=== PATIENT | male | born 1935 | race Caucasian/White ===

== ENCOUNTER 2017-04-28 12:29 | Inpatient (IN) | payer OTHER ==
[~2017-04-28] VITALS: Ht 180.3 cm; Wt 116.6 kg
[~2017-04-28 12:29] MED LIST: ACETAMINOPHEN-1 EAC3 PO; ACTOPLUS MET 11 EAC1 PO; AMBEREN PO; AMLODIPINE BESY10 MG PO; ASPIRIN EC81 M1 PO; BRILINTA90 MG PO; CALCIUM OYSTER500 MG PO; CENTRUM SILVER1 EAC4 PO; COMBIGAN EYE DR10 ML OPHTHALMIC; COZAAR 50 MG TA50 M1 PO; COZAAR 50 MG TA50 M2 PO; CRESTOR40 MG PO; GARLIC OIL1 EACH PO; GLUCOSAMINE &1 EACH PO; GLUCOTROL10 MG PO; HCTZ PO; HUMALOG100 UNIT/1 SQ; HYDROCHLOROTHIA25 M1 PO; IMDUR 30 MG TAB30 M1 PO; IMDUR 60 MG TAB60 M1 PO; JANUVIA100 MG PO; KLOR-CON 1010 MEQ PO; LANTUS SUBQ; LASIX 20 MG TAB20 MG PO; LATANOPROST 0.2.5 ML OPHTHALMIC; LEVAQUIN 750 M750 MG PO; LUMIGAN2.5 M1 OP; NITROGLYCERIN0.4 MG SUBLING; OMEGA-3 FISH O1 EAC3 PO; OMEPRAZOLE40 MG PO; OSTEO BI-FLEX1 EACH PO; PLAVIX 75 MG TA75 M1 PO; PLAVIX 75 MG TA75 MG PO; RANITIDINE 150150 M1 PO; TAMIFLU75 MG PO; TAMSULOSIN HCL0.4 MG PO; ZANTAC 150MG T150 M1 PO; ZETIA10 MG PO
[2017-04-28 12:46] VITALS: BP 149/54
[2017-04-28 13:57] LABS: ABSOLUTE LYMPHOCYTES 1.2 thou/uL (0.8-5.3); ABSOLUTE MONOCYTES 0.8 thou/uL (0.0-1.2); ABSOLUTE NEUTROPHILS 7.9 thou/uL (1.6-8.1); BASOPHILS 0.5 %; EOSINOPHILS 0.2 %; HEMATOCRIT 29.2 % (42.0-52.0); HEMOGLOBIN 9.8 gm/dL (14.0-18.0); LYMPHOCYTES 12.3 %; MCH 31.4 pg (26.0-34.0); MCHC 33.7 g/dL (28.0-37.0); MCV 93.3 fL (80.0-100.0); MONOCYTES 8.1 %; MPV 9.5 fl. (7.2-11.1); NUCLEATED RBCS 0 /100WBC; PLATELET COUNT* 147 thou/uL (150-400); POLYS 78.9 %; RBC 3.13 mil/uL (4.50-6.00); RDW-CV 15.3 % (10.5-14.5)
[2017-04-28 14:05] LABS: CALCIUM 8.7 mg/dL (8.5-10.1); CREATININE 1.3 mg/dL (0.6-1.3); POTASSIUM 4.1 mmol/L (3.5-5.1)
[2017-04-28 14:10] LABS: ALBUMIN 3.2 g/dL (3.4-5.0); TOTAL BILIRUBIN 0.5 mg/dL (<0.1-1.0); TOTAL PROTEIN 6.4 g/dL (6.4-8.2)
[2017-04-28 14:12] LABS: INFLUENZA A ANTIGEN None Detected (None Detect); INFLUENZA B ANTIGEN None Detected (None Detect)
[2017-04-28 16:50] VITALS: BP 138/58
[2017-04-28 17:15] VITALS: BP 115/64
--- NOTE | 2017-04-28 18:00 | NUR ---
RECEIVED REPORT FROM YOKASTA IN ER. PT ARRIVED TO TELE FLOOR AT 1715. ASSUMED CARE. PT A&O X4. VSS. O2 SAT 97% ON 4L PER NC. PT SHAKEY AND WEAK. CARDAIC MONITOR PLACED TRACING SB. ADMISSION HISTORY, ASSESSMENT, AND EDUCATION COMPLETED CHARTED. MEDS RECONCILLED. PT ORIENTED TO ROOM, BED, AND CALL LIGHT. PT DENIES PAIN OR DISCOMFORT, JUST STATES "I'M TIRED". PT NOT INTERESTED IN EATING DINNER. FALL PRECAUTIONS IN PLACE. CALL LIGHT IS WITHIN REACH. HOURLY ROUNDING.
[2017-04-28 20:00] VITALS: BP 126/59
[2017-04-28 23:41] VITALS: BP 99/49
[2017-04-29 03:49] VITALS: BP 117/84
--- NOTE | 2017-04-29 05:17 | NUR ---
PT A/OX4, SB ON THE MONITOR, 5L NC, UP WITH 1 WITH CANE, USING URINAL, UA COLLECTED AND SENT TO LAB, SPUTUM/STOOL SAMPLE STILL NEEDED, MEDS/ASSESSMENT PER CHARTING, HOURLY ROUNDING IN PLACE, FALL PRECAUTIONS IN PLACE, VSS, PT REPORTED NO PAIN, STATED SOA IS BETTER, WILL CONT TO MONITOR.
--- NOTE | 2017-04-29 08:00 | NUR ---
RECEIVED REPORT. ASSUMED CAER OF PT AT 0730. VSS. CARDIAC MOTNIORING IN PLACE SB. AM ASSESSMENT AND VITALS COMPLETED CHARTED. PT IS ALERT AND ORIENTED. PT ON 6L PER NC WITH O2 SAT AT 89-90%. PT DENIES ANY COMPLAINTS OF PAIN OR DISCOMFORT THIS AM. PT BECOMES SOA WITH ACTIVITY. IVF INFSUING. INFORMED DR. SINGH OF PT'S RESPIRATORY STATUS. ORDERS RECEIVED FOR IV LASIX, D/C IVF. PT INFORMED OF PLAN OF CARE. CALL LIGHT IS WITHIN REACH. WILL CONTINUE TO MOTNIOR FOR DURAIOTN OF SHIFT.
[2017-04-29 08:30] VITALS: BP 148/57
[2017-04-29 11:30] VITALS: BP 135/57
--- NOTE | 2017-04-29 12:14 | NUR ---
MET WITH PT TO DISCUSS HOME SITUATION/DC PLANNING. PT KNOWN TO CM FROM PREVIOUS HOSPITAL STAY IN FEB. PT LIVES IN [place]DEP[place]ENT APT AT [facility] WITH HIS . HE STATES SHE IS NOT IN 'GOOD' HEALTH. PT IS STILL ABLE TO DRIVE SHORT DISTANCES TO GO TO [facility] AND RUN ERRANDS. HE USES CANE OR WALKER NEEDED. PT HAS HAD HH WITH [facility] IN THE PAST BUT NOT CURRENTLY. WIEF IS DPOA. PT STATES HE IS WORKING ON GETTING GROCERIES DELIVERED AND ALREADY GETS THEIR MEDS DELIVERED. PT FOLLOWS WITH DR SCHMIDT BUT IS INTERESTED IN FINDING A DR CLOSER TO WHERE HE LIVES BUT NOT AT [facility]. WILL TRY TO GET LIST OFF HIS INSURANCE WEBSITE AND GIVE TO HIM
--- NOTE | 2017-04-29 13:45 | 2DMMODE ---
[place] [address] 2 D/M-MODE ECHOCARDIOGRAM Name: NASREEN VARELAL Room: [address] IN [facility]#: [id number] Admission: 04/28/17 Attend Phys: Pb Gamez, Discharge: Date of : 33 Date of Service: 04/29/17 1344 Report #: [id number] THIS REPORT FOR: //name// APPROVED REPORT Study performed: 04/29/2017 11:09:56 EXAM: Comprehensive 2D, Doppler, and color-flow Echocardiogram Patient Location: In-Patient Room #: 229 Status: routine BSA: 2.24 HR: 63 bpm BP: 148/57 mmHg Rhythm: NSR Other Information Study Quality: Good Indications Dyspnea CAD 2D Dimensions LVEF(%): 48.39 (>50%) IVSd: 14.49 (7-11mm) LVOT Diam: 19.15 (18-24mm) LVDd: 61.26 mm PWd: 10.60 (7-11mm) Ascending Ao: 32.20 (22-36mm) LVDs: 46.01 (25-40mm) Aortic Root: 33.57 mm Franklin's LVEF: 48.39 % Volumes Left Atrial Volume (Systole) LA ESV Index: 39.90 mL/m2 Aortic Valve AoV Peak Vasiliy.: 3.14 m/s AO Peak Gr.: 39.47 mmHg LVOT Max P.92 mmHg AO Mean Gr.: 23.32 mmHg LVOT Mean P.20 mmHg LVOT Max V: 1.49 m/s AO V2 VTI: 67.30 cm LVOT Mean V: 0.93 m/s GLORIA (VTI): 1.42 cm2 LVOT V1 VTI: 33.13 [place] [address] 2 D/M-MODE ECHOCARDIOGRAM Name: JULIO VARELA I Room: [address] IN ..#: [id number] Admission: 04/28/17 Attend Phys: Pb Gamez, Discharge: Date of : 33 Date of Service: 04/29/17 1344 Report #: [id number] E/A Ratio: 1.22 MV Decel. Time: 161.61 ms MV E Max Vasiliy.: 1.25 m/s MV PHT: 46.87 ms MVA (PHT): 4.69 cm2 TDI E/Lateral E': 9.62 E/Medial E': 11.36 Medial E' Vasiliy.: 0.11 m/s Lateral E' Vasiliy.: 0.13 m/s Pulmonary Valve PV Peak Vasiliy.: 1.37 m/s PV Peak Gr.: 7.50 mmHg Tricuspid Valve TR Peak Gr.: 25.11 mmHg RVSP: 30.00 mmHg Left Ventricle The left ventricle is normal size. There is normal LV segmental wall motion. There is normal left ventricular wall thickness. Left ventricular systolic function is normal. LVEF is 55-60%. The left ventricular diastolic function is normal. Right Ventricle Right ventricle is mildly dilated. The right ventricular systolic function is normal. Atria Left atrium is mildly dilated. Right atrium is mildly dilated. Aortic Valve Bioprosthetic aortic valve is present. No aortic regurgitation is present. Mild aortic stenosis. Mitral Valve There is mitral annular calcification. Trace mitral regurgitation. No evidence of mitral valve stenosis. Tricuspid Valve The tricuspid valve is normal in structure. Mild tricuspid regurgitation. The RVSP is 30-35 mmHg. Pulmonic Valve The pulmonary valve is normal in structure. [place] [address] 2 D/M-MODE ECHOCARDIOGRAM Name: JULIO VARELA I Room: [address]#: [id number] Admission: 04/28/17 Attend Phys: Pb Gamez, Discharge: Date of : 33 Date of Service: 04/29/17 1344 Report #: [id number] Great Vessels The aortic root is normal in size. IVC is normal in size and collapses with >50% inspiration Pericardium There is no pericardial effusion. <Conclusion> The left ventricle is normal size. There is normal left ventricular wall thickness. Left ventricular systolic function is normal. LVEF is 55-60%. The left ventricular diastolic function is normal. The left atrium size is normal. Right ventricle is mildly dilated. Left atrium is mildly dilated. Right atrium is mildly dilated. Bioprosthetic aortic valve is present. No aortic regurgitation is present. Mild aortic stenosis. There is mitral annular calcification. Trace mitral regurgitation. Mild tricuspid regurgitation. The RVSP is 30-35 mmHg. <ELECTRONICALLY SIGNED> By: Kvng Delvalle MD, FACC 04/29/17 1344 1344 1344 Kvng Delvalle MD, FACC /INF
--- NOTE | 2017-04-29 14:40 | EKG ---
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 : 1935 Requested By: Ivan Melara Order Number: [id number] MD: Kvng Delvalle Measurements Intervals Anderson Rate: 59 P: 59 NH: 179 QRS: -29 QRSD: 114 T: 151 QT: 449 QTc: 445 Interpretive Statements Sinus rhythm Inferior infarct age indeterminate Baseline wander in lead(s) V6 Compared to ECG 02/20/2017 11:43:34 Sinus bradycardia no longer present T-wave abnormality no longer present Electronically Signed On 04-29-2017 14:40:09 BILINGUAL OFFICE ASSISTANT by Kvng Delvalle [email or web address] <ELECTRONICALLY SIGNED> By: Kvng Delvalle MD, FACC 04/29/17 1440 1418 1418 Kvng Delvalle MD, [facility] /EPI
[2017-04-29 15:30] VITALS: BP 130/53
--- NOTE | 2017-04-29 17:15 | NUR ---
VSS. CARDIAC MONTIRING IN PLACE WITH NO CHANGES THIS SHIFT. PT REMIANS ON 5L PER NC WITH O2 SAT AT 90% PT DOES DE-SAT INTO MID-UPPER 80'S WITH ACTIVITY. PT SOMEWHAT PROGRESSING TOWARDS GOALS. PT NOW ON 2000 ML FR. PT EDUCATED. PT DIUREISED WELL THIS SHIFT. PT COMPLIANT WITH CRITICAL I&O. PT HAS HAD NO COMPLAINTS OF PAIN OR DISCOMFORT THIS SHFIT. NEW IV STARTED TO RIGHT HAND SALINE LOCKED. PT'S DAUGHTER INFORMED OF PLAN OF CARE. CALL LIGHT IS WITHIN REACH. PT IS UP WITH ASSISTANCE. BED ALARM ON FOR PT SAFETY. HOURLY ROUNDING. WILL CONTINUE TO MONTIOR FOR DURAITON OF SHIFT.
[2017-04-29 20:00] VITALS: BP 116/56
--- NOTE | 2017-04-29 22:00 | NUR ---
ASSESSMENT AND VITALS COMPLETED CHARTED, VSS. PATIENT DENIES PAIN AND DISCOMFORT. PATIENT ON 6L NC WITH SATS 93%. PATIENT IS SHORT OF AIR ON EXERTION. GOAL IS TO MAINTAIN SATS >92% AND HAVE IMPROVEMENT IN BREATHING. CALL LIGHT WITHIN REACH
[2017-04-30] VITALS: BP 107/69
[2017-04-30 04:23] VITALS: BP 139/48
[2017-04-30 04:57] LABS: CALCIUM 8.8 mg/dL (8.5-10.1); CREATININE 1.1 mg/dL (0.6-1.3); MAGNESIUM 1.5 mg/dL (1.8-2.4); POTASSIUM 3.7 mmol/L (3.5-5.1)
--- NOTE | 2017-04-30 05:23 | NUR ---
PATIENT PARTIALLY PROGRESSING TOWARDS GOALS: PATIENT MAINTAINED O2 SATS >92% ON 6L O2 NC. PATIENT REPORTS FEELING LESS SHORT OF AIR THIS AM. HOURLY ROUNDING OBSERVED. CALL LIGHT WITHIN REACH
[2017-04-30 08:00] VITALS: BP 153/87
[2017-04-30 08:21] LABS: URINE BILIRUBIN NEGATIVE (Negative); URINE BLOOD NEGATIVE (Negative); URINE CLARITY CLEAR; URINE COLOR YELLOW; URINE GLUCOSE-RANDOM NEGATIVE (Negative); URINE KETONES NEGATIVE (Negative); URINE LEUKOCYTES-REFLEX NEGATIVE (Negative); URINE NITRITE-REFLEX NEGATIVE (Negative); URINE PROTEIN NEGATIVE (Negative); URINE SPECIFIC GRAVITY 1.015 (1.005-1.030); URINE UROBILINOGEN 0.2 E.U./dl (0.2-1.0)
[2017-04-30 11:30] VITALS: BP 114/40
[2017-04-30 15:30] VITALS: BP 109/53
--- NOTE | 2017-04-30 18:17 | NUR ---
ASSUMED PT CARE AT 0730, FULL ASSESMENT DONE CHARTED. PT A/O X4, VERY [place], VSS, SR-ST/PVC'S ON THE MONITOR. PT DENIES PAIN, UP WITH 1 ASSIST/WALKER, USES CALL LIGHT APPROPRILATY.LASIX GIVEN, PT VOIDING PER URINAL, BM TODAY. FALL PRECATUIONS IN PLACE, CALL LIGHT IN REACH. WILL CONTINUE WITH PLAN OF CARE.
[2017-04-30 20:01] VITALS: BP 148/47
--- NOTE | 2017-04-30 22:00 | NUR ---
ASSESSMENT AND VITALS COMPLETED CHARTED, VSS. PATIENT DENIES CHEST PAIN, SOB, PAIN AND DISCOMFORT. PATIENT ON 6L O2 NC WITH SATS >92%. GOAL IS WEAN DOWN O2 IF TOLERATED. CALL LIGHT WITHIN REACH
[2017-05-01] VITALS: BP 136/45
[2017-05-01 04:00] VITALS: BP 149/58
--- NOTE | 2017-05-01 04:41 | NUR ---
PATIENT NOT PROGRESSING TOWARDS GOALS: PATIENT STILL REQUIRING 6L O2 NC TO MAINTAIN SATS >92%. PATIENT CONTINUES TO DENY PAIN AND DISCOMFORT. HOURLY ROUNDING OBSERVED. CALL LIGHT WITHIN REACH
[2017-05-01 05:11] LABS: HEMATOCRIT 28.2 % (42.0-52.0); HEMOGLOBIN 9.6 gm/dL (14.0-18.0); MCHC 34.2 g/dL (28.0-37.0); MCV 90.6 fL (80.0-100.0); MPV 9.7 fl. (7.2-11.1); RBC 3.11 mil/uL (4.50-6.00); RDW-CV 14.8 % (10.5-14.5); WBC 6.8 thou/uL (4.0-11.0)
[2017-05-01 05:16] LABS: CALCIUM 8.7 mg/dL (8.5-10.1); CREATININE 0.9 mg/dL (0.6-1.3); MAGNESIUM 1.5 mg/dL (1.8-2.4); POTASSIUM 3.5 mmol/L (3.5-5.1)
[2017-05-01 09:00] VITALS: BP 170/107
[2017-05-01 15:59] VITALS: BP 89/34
[2017-05-01 16:00] VITALS: BP 94/82
--- NOTE | 2017-05-01 20:08 | NUR ---
ASSUMED PT CARE AT 0730, FULL ASSESMENT DONE CHARTED. PT A/O X4, DENIES PAIN. BP ELEVATED THIS AM, AT BASELINE AFTER AM MEDS. ALL OTHER VSS. ON 6L O2 MOST OF THIS SHIFT, SATS 97%. WALKED PT 3 TIMES IN [place] TODAY, THIS EVENING O2 PLACED ON 5L, SAT WAS 98%. PT DENIES SOA ON EXERSION. PT USING WALKER. IS ANXIOUS TO HAVE HOME O2. PT STATES HIS DAUGHTER IS NERVOUS TO HAVE HIM GO HOME AND HAVE TO TAKE CARE OF HIS . SHE IS WANTING PT TO GO TO REHAB FOR A SHORT TIME BEFORE GOING HOME. PT ENCOURAGED TO DISCUSS THIS WITH THE DR. PT VERBALIZED UNDERSTANDING. PT USES CALL LIGHT APPROPRIALTY. FALL PRECAUTIONS IN PLACE. REPORT GIVEN TO IRMA CAMARILLO .
[2017-05-01 20:21] VITALS: BP 136/55
[2017-05-02] VITALS: BP 96/52
[2017-05-02 04:05] VITALS: BP 128/56
[2017-05-02 05:43] LABS: CALCIUM 9.2 mg/dL (8.5-10.1); CREATININE 1.1 mg/dL (0.6-1.3); MAGNESIUM 1.8 mg/dL (1.8-2.4)
--- NOTE | 2017-05-02 06:41 | NUR ---
Pt pleasant and humorous. Reports being able to get some sleep overnight. O2 decreased to 4L from 5 this am. SaO2 95% on 4L. States he is hopeful of being discharged today. Will continue to monitor.
[2017-05-02 08:03] VITALS: BP 153/74
--- NOTE | 2017-05-02 08:30 | NUR ---
RECEIVED REPORT. ASSUMED CARE OF PT AT 0730. VSS. CARDIAC MONITORING IN PLACE SR. AM ASSESSMENT AND VITALS COMPLETED CHARTED. PT ALERT AND OREITNED BUT FORGETFUL. PT ON 4L PER NC WITH O2 SAT AT 93% PT REPORTS A PRODUCTIVE COUGH. 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 PT DNIES ANY COMPLAITNS OF PAIN OR DISCOMFORT THIS AM. PT IS UP WITH STAND BY ASSISTANCE. PT DENIES ANY SOA. CALL LIGHT IS WITHIN REACH. WILL CONTINUE TO MONITOR FOR DURATION OF SHIFT.
[2017-05-02 12:21] VITALS: BP 99/52
--- NOTE | 2017-05-02 13:47 | NUR ---
ORDERS RECEIVED FOR DC HOME WITH HH AND O2. PT QUALIFIED FOR O2 3L WITH ACTIVITY. PT HAS USED [facility] AND WANTS TO USE THEM AGAIN. CALLED AND FAXED DC ORDERS TO [facility]. THEY WILL SEE PT BY WED. SET UP O2 THRU [facility], CONTACTED AND FAXED ORDERS TO [facility], SHE WILL DELIVER TANK TO HOSPITAL WITHIN THE HOUR. PT STATES HIS DTR WILL TAKE HIM HOME
[2017-05-02] MEDS ORDERED: LEVAQUIN 750 M750 MG PO (15:12)
--- NOTE | 2017-05-02 15:49 | NUR ---
DISCHARGE ORDERS RECEIVED AND PREPARED. IV AND CARDIAC MOTNIROING DISCONTINUED. PT AND DAUGHTER EDUCATED ON DISCHARGE ISNTRCTUIONS. ALL QUESTIONS AND CONCERNS ANSWERED AT THIS TIME. PT'S NEW SCRIPTS CALLED INTO PT'S [facility] IN [facility]. PT GIVEN COPY OF DISCHARGE PAPERWORK. PT'S PERSONAL BELONIGNGS GATHERED AND SENT HOME WITH PT. PT'S HOME O2 DELIVERED. PT ESCORTED OFF UNIT WITH NURSING STAFF. PT LEFT IN PRIVATE VEHICLE.
== END 2017-05-02 15:51 | disposition home health service (06) | DRG 291 ==
LOC: M.ERS 12:29 → M.TBA-ER 14:38 → M.2W 14:38
PROVIDERS: Emergency Medicine; ADMIT Internal Medicine
DX: I50.33 Acute on chronic diastolic (congestive) heart failure (principal); J18.9 Pneumonia, unspecified organism; J96.01 Acute respiratory failure with hypoxia; I13.0 Hypertensive heart and chronic kidney disease with heart failure and stage 1 through stage 4 chronic kidney disease, or unspecified chronic kidney disease; D61.818 Other pancytopenia; E78.00 Pure hypercholesterolemia, unspecified; H40.9 Unspecified glaucoma; H35.30 Unspecified macular degeneration; E11.22 Type 2 diabetes mellitus with diabetic chronic kidney disease; I25.10 Atherosclerotic heart disease of native coronary artery without angina pectoris; B34.9 Viral infection, unspecified; N18.3 Chronic kidney disease, stage 3 (moderate); D64.9 Anemia, unspecified; I27.20 Pulmonary hypertension, unspecified; Z95.2 Presence of prosthetic heart valve; Z86.12 Personal history of poliomyelitis; Z98.41 Cataract extraction status, right eye; Z98.42 Cataract extraction status, left eye; Z95.5 Presence of coronary angioplasty implant and graft; Z95.1 Presence of aortocoronary bypass graft; Z88.0 Allergy status to penicillin; Z87.891 Personal history of nicotine dependence; Z79.4 Long term (current) use of insulin

== ENCOUNTER → 2017-05-18 | Outpatient (CLI) | payer OTHER ==
[2017-05-18 14:23] LABS: CALCIUM 9.1 mg/dL (8.5-10.1); CREATININE 1.1 mg/dL (0.6-1.3); POTASSIUM 4.7 mmol/L (3.5-5.1)
--- NOTE | 2017-05-26 17:26 | 24HR ---
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 The maximum heart rate was 131 bpm corresponding with sinus tachycardia. The minimum heart rate was 38 bpm corresponding with sinus bradycardia. The patient exhibited tachycardia defned as heart rate greater than 100 bpm 5% of the monitored phase. The patient exhibited bradycardia defined as heart rate less than 50 and 1% the monitored phase. There are frequent unifocal premature ventricular contractions. There are frequent ventricular couplets and triplets. There are episodes of nonsustained ventricular tachycardia lasting up to 6 beats with rates ranging from the 70s to 120s. There were no episodes of sustained ventricular tachycardia. There are occasional premature atrial contractions. There are rare atrial couplets. There were no episodes of significant sustained supraventricular arrhythmia. There were no significant pauses and rhythm. There is no evidence of underlying atrial fibrillation or flutter. A diary was not submitted with this Holter monitor. Electronically Signed On 05-26-2017 17:25:54 APPLIED PSYCHOLOGY CHAIR by Kvng Delvalle [email or web address] <ELECTRONICALLY SIGNED> By: Kvng Delvalle MD, [facility] 05/26/17 1725 1054 1054 Kvng Delvalle MD, FAC /EPI
== END ==
LOC: M.LAB 13:58
PROVIDERS: Internal Medicine Cardiovascular Disease
DX: I10 Essential (primary) hypertension (principal); J18.9 Pneumonia, unspecified organism

== ENCOUNTER → 2017-08-29 | Outpatient (CLI) | payer OTHER | LOC: M.ULTRA 13:03 | DX: I65.23 Occlusion and stenosis of bilateral carotid arteries (principal) ==